=== PATIENT | male | born 1945 | race Caucasian/White ===

== ENCOUNTER → 2018-09-25 | Outpatient (CLI) | payer MEDICARE, OTHER ==
[2015-12-12 18:00] VITALS: BP 96/56
[~2018-09-25] MED LIST: ALLO100T PO; ASPI81TA50 PO; ATOR40TA59 PO; CHOL500016 PO; DOCU100C28 PO; LISI1TAB7 PO; MULT-208 PO; OMEG1CAP6 PO; OMEP20CA10 PO; SILD100T PO; VITA400C36 PO
--- NOTE | 2018-09-25 15:25 | KCIC ---
Renal ultrasound HISTORY: Follow-up left renal cyst. COMPARISON: Prior ultrasound. CT scan from May 07, 2012. FINDINGS: Right kidney measures 11.1 cm longitudinal without hydronephrosis. Left kidney measures 11.4 cm longitudinal without hydronephrosis. Lower pole lesion with cystic appearance measures 2.9 x 2.6 x 3.0 cm this likely corresponds with the lesion seen on prior CT scan although measures larger today. The proximal aorta obscured by bowel gas. Mid to distal aorta are nonaneurysmal. Inferior vena cava is obscured by bowel gas. The prostate measures 3.7 x 3.6 x 3.6 cm. Urinary bladder is not distended. IMPRESSION: 1. Lower pole left renal cyst. This measures slightly larger as compared with the scan from 2012. 2. Unremarkable right kidney. Electronically signed by: Carroll Small MD (09/25/2018 3:22 PM) [id number]
== END | disposition home or self-care (01) ==
LOC: KCIC US 13:43
PROVIDERS: ATTEND Internal Medicine
DX: N28.1 Cyst of kidney, acquired (principal)
CPT/HCPCS: 76770

== ENCOUNTER → 2019-10-28 | Outpatient (CLI) | payer MEDICARE, OTHER ==
[2015-12-12 18:00] VITALS: BP 96/56
[~2019-10-28] MED LIST changes: +LISI1TAB20 PO; -LISI1TAB7 PO; -OMEP20CA10 PO; +OMEP20CA16 PO; +VITA-8 PO; -VITA400C36 PO
--- NOTE | 2019-10-28 13:54 | KCIC ---
Renal ultrasound 10/28/2019 INDICATION: Follow-up, renal cysts. COMPARISON STUDY: Renal ultrasound September 25, 2018 Discussion: Ultrasound evaluation of the kidneys was performed. Static images are submitted to PACS. Right kidney measures 11.8 x 4.5 x 5.3 cm. No hydronephrosis, nephrolithiasis, or focal renal lesion is identified right. The left kidney measures 11.8 x 4.6 x 5.7 cm. There is a cyst in the inferior aspect of the left kidney measuring approximately 3.9 x 2.9 x 2.7 cm. What appears to be thin septation is seen within the cyst. No gross calcification is identified. Limited visualization of the bladder is unremarkable. The prostate is only partially visualized but appears to be at least mildly enlarged. There is a prosthetic calcification appear to be present. IMPRESSION: 1. Left inferior pole renal cyst has again increased in the interim since comparison study. If more thorough evaluation is desired, multiphase CT may be helpful for further characterization. 2. Otherwise unremarkable sonographic appearance of the kidneys. 3. 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
== END | disposition home or self-care (01) ==
LOC: KCIC US 12:42
PROVIDERS: ATTEND Urology
DX: N28.1 Cyst of kidney, acquired (principal); N40.0 Benign prostatic hyperplasia without lower urinary tract symptoms
CPT/HCPCS: 76770